=== PATIENT | male | born 1955 | race Caucasian/White ===

== ENCOUNTER 2016-12-07 05:46 | Day surgery (SDC) | payer OTHER ==
[~2016-12-07 05:46] MED LIST: CEFAZOLIN SODIUM 2 GRAM PREMIX 100 ML IV PRN
[2016-12-07] MEDS ORDERED: IV START KIT ONE (05:49)
[2016-12-07] MEDS ORDERED: LACTATED RINGERS 1,000 ML ONE ×2 (05:49→09:09)
[2016-12-07] MEDS ORDERED: CEFAZOLIN SODIUM 2 GRAM PREMIX 100 ML IV ONE (06:20)
[2016-12-07] MEDS ORDERED: LIDOCAINE 1% (PRES FREE) 30 ML VIAL ONE (06:53)
[2016-12-07] MEDS ORDERED: CEFAZOLIN SODIUM 1,000 MG VIAL ONE (06:53)
[2016-12-07] MEDS ORDERED: SODIUM CHLORIDE 0.9% FLUSH 10 ML ONE (06:54)
[2016-12-07] MEDS ORDERED: BUPIVACAINE 0.5% (PRES FREE) 30 ML VIAL ONE ×2 (06:54→08:17)
[2016-12-07] MEDS ORDERED: FENTANYL 100 MCG/2 ML VIAL ONE (07:17)
[2016-12-07] MEDS ORDERED: LABETALOL HCL 5 MG/ML 20ML VIAL IV PRN (07:41)
[2016-12-07] MEDS ORDERED: MORPHINE SULFATE 4 MG/ML SYRINGE IV PRN ×2 (07:41→09:46)
[2016-12-07] MEDS ORDERED: ONDANSETRON 4 MG/2ML 2 ML VIAL IV PRN (07:41)
[2016-12-07] MEDS ORDERED: PROMETHAZINE HCL 25 MG/ML VIAL IM PRN (07:41)
[2016-12-07] MEDS ORDERED: ATROPINE SULFATE 0.4 MG/1 ML VIAL IV PRN (07:41)
[2016-12-07] MEDS ORDERED: NALOXONE HCL 0.4 MG/ML VIAL IV PRN (07:41)
[2016-12-07] MEDS ORDERED: MEPERIDINE 25 MG/ML SYRINGE IV PRN (07:41)
[2016-12-07] MEDS ORDERED: LACTATED RINGERS 1,000 ML IV SCH (07:45)
[2016-12-07] MEDS ORDERED: PROPOFOL 20 ML IV ONE (08:38)
[2016-12-07] MEDS ORDERED: METOCLOPRAMIDE HCL 5 MG/ML 2ML VIAL ONE (08:38)
[2016-12-07] MEDS ORDERED: ONDANSETRON 4 MG/2ML 2 ML VIAL ONE ×2 (08:38→11:12)
[2016-12-07] MEDS ORDERED: KETOROLAC TROMETHAMINE 30 MG/ML 1 ML VIAL ONE ×2 (08:38→11:07)
[2016-12-07] MEDS ORDERED: FAMOTIDINE 10 MG/ML 2ML VIAL ONE (08:38)
[2016-12-07] MEDS ORDERED: MORPHINE SULFATE 10 MG/ML SYRINGE ONE (08:39)
[2016-12-07] MEDS ORDERED: OXYCODONE HCL 5 MG TABLET PO PRN (09:32)
[2016-12-07] MEDS ORDERED: MORPHINE SULFATE 2 MG/ML SYRINGE IV PRN (09:32)
[2016-12-07] MEDS ORDERED: MORPHINE SULFATE 10 MG/ML SYRINGE IV PRN (09:46)
--- NOTE | 2016-12-07 09:46 | OP ---
Francesco Haynes [id number] DATE OF SURGERY: 12/07/2016 PREOPERATIVE DIAGNOSIS: Bilateral inguinal hernia. POSTOPERATIVE DIAGNOSIS: Bilateral inguinal hernia. PROCEDURE: Bilateral inguinal hernia repair with mesh, plug, and patch. SURGEON: Raymundo Alonso MD. FIELD APPLICATION ENGINEER: Jonnathan. ANESTHESIA: Justus, General. INDICATION: This is a 61-year-old male who presents for elective repair of bilateral inguinal hernia's. DESCRIPTION: With informed consent he was taken to the operating room where he was laid supine on the operating room table. General anesthesia was administered. The groin was prepped and draped in a sterile fashion. Mirror image incisions were drawn on the skin. We did the left side first. Local anesthetic was administered in the skin and subcutaneous tissues. Incision was made. Electrocautery was used to divide the subcutaneous fat. We opened the external oblique with a knife and Metzenbaum scissors in a fibrous splitting technique. Cord structures were from the large direct sac and encircled at the level of the pubic tubercle with a Steffany drain. We dissected the large direct sac free circumferentially to allow for placement of a preperitoneal plug. We ended up putting two plugs on the left side, these were both extra large. They were secured together with Vicryl and placed within the defect. It was sutured to the inner petals using 2-0 Vicryl circumferentially. A flat piece of mesh was then placed across the floor of the canal. A slit was placed laterally and placed around the cord structures. This was carried laterally with 2-0 Vicryl, it was placed up beneath the external oblique. I did secure it down near the pubic tubercle with a Vicryl stitch. The wound was irrigated. We appeared to have adequate hemostasis. External oblique was reapproximated with a running 2-0 Vicryl. Additional local anesthetic was administered below the external oblique and the subcutaneous tissues. The dunia's fascia was reapproximated with 3-0 Vicryl. The skin was closed with a running subcuticular 4-0 Monocryl. The right side was then incised in a similar fashion. We dissected down to the hernia sac and exposed it in a similar fashion. There was again a direct defect. Preperitoneal plain was entered and a single extra large mesh plug was placed, this was secured circumferentially with 2-0 Vicryl. A flat piece of mesh was placed in a similar fashion, again with a slit cut laterally for the cord structures. This was placed beneath the external oblique. The wound was irrigated and local anesthetic was administered. It was closed in a similar fashion. Mastisol and Steri-Strips were placed to both sides. Sterile dressings were applied. He tolerated the procedure and was taken to the recovery room in stable condition. Note was made that needle, instrument, and lap counts were reported as correct at the time of closure. JOB: [id number] CC: Dr. Sukhjinder Montesinos
[2016-12-07] MEDS ORDERED: ACETAMINOPHEN 325 MG TABLET ONE (11:07)
[2016-12-07] MEDS: KETOROLAC TROMETHAMINE 30 MG/ML 1 ML VIAL IV PRN (11:08)
[2016-12-07] MEDS: ACETAMINOPHEN 325 MG TABLET PO PRN (11:09)
[2016-12-07] MEDS: ONDANSETRON 4 MG/2ML 2 ML VIAL IV PRN (11:15)
== END 2016-12-07 11:57 | disposition home or self-care (01) ==
LOC: SDC 05:46
PROVIDERS: ATTEND Surgery
DX: K40.20 Bilateral inguinal hernia, without obstruction or gangrene, not specified as recurrent (principal); I48.91 Unspecified atrial fibrillation
CPT/HCPCS: 49505; J0690 ×2; J3010; J2270; J2765; J1885 ×2; A9270; J2405 ×2; J7120 ×2